=== PATIENT | male | born 1960 | race Caucasian/White ===

== ENCOUNTER 2025-02-15 12:28 | Inpatient (IN) | payer BC, OTHER ==
[~2025-02-15] VITALS: Ht 175.3 cm; Wt 67.5 kg
[~2025-02-15 12:28] MED LIST: AMIT25TA10 PO; ASPI-611 PO; GLUC-131 PO; LISI10TA27 PO; LOP25T PO; MELA3TAB39 PO; NITR0.4T48 SL; VALA100031 PO
[2025-02-15 12:49] VITALS: PULSE 93; RESP 24; O2SAT 95
[2025-02-15 13:10] LABS: BASOPHILS # (AUTO) 0.1 X10'3 (0-0.2); BASOPHILS % (AUTO) 1.2 % (0-1); EOSINOPHILS # (AUTO) 0.1 X10'3 (0-0.9); EOSINOPHILS % (AUTO) 0.7 % (0-6); HEMATOCRIT 27.4 % (42.0-52.0); HEMOGLOBIN 9.5 g/dl (14.0-17.9); LYMPHOCYTES # (AUTO) 1.3 X10'3 (1.1-4.8); LYMPHOCYTES % (AUTO) 12.3 % (21-51); MEAN CORPUSCULAR HEMOGLOBIN 37.3 PG (27.0-31.0); MEAN CORPUSCULAR HGB CONC 34.8 g/dL (33.0-36.5); MEAN CORPUSCULAR VOLUME 107.1 FL (78-98); MEAN PLATELET VOLUME 11.4 FL (7.4-10.4); MONOCYTES # (AUTO) 0.8 X10'3 (0-0.9); MONOCYTES % (AUTO) 7.4 % (2-12); NEUTROPHILS % (AUTO) 78.4 % (42-75); PLATELET COUNT 86 X10'3 (140-440); RED BLOOD COUNT 2.56 X10'6 (4.70-6.10); RED CELL DISTRIBUTION WIDTH 16.1 % (11.5-14.5); WHITE BLOOD COUNT 10.2 X10'3 (4.5-11.0)
[2025-02-15 13:12] LABS: PROTHROMBIN TIME 10.7 SECONDS (9.0-12.0)
[2025-02-15 13:19] LABS: ALBUMIN 1.3 G/DL (3.4-5.0); ANION GAP 15 (8-16); BLOOD UREA NITROGEN 115 MG/DL (7-18); BUN/CREATININE RATIO 18.7 (10.0-20.0); CALCIUM 8.3 MG/DL (8.5-10.1); CHLORIDE 97 MMOL/L (99-107); CREATININE 6.15 MG/DL (0.60-1.10); GLUCOSE 102 MG/DL (70-104); POTASSIUM 3.6 MMOL/L (3.5-5.1); SODIUM 134 MMOL/L (135-145); TOTAL CARBON DIOXIDE 22.4 MMOL/L (24-32); eCRCL 12 ML/MIN; eGFR 9 ML/MIN
[2025-02-15] MEDS ORDERED: heparin 10,000 units/1 ML INJ IV PRN (13:20)
[2025-02-15] MEDS: heparin 25,000 UNIT/250ml bag 250 ML IV PRN (13:26)
[2025-02-15] MEDS: HEPARIN DRIP INITAL BOLUS --- DO NOT GIVE/ORDER MC ONE (13:27)
[2025-02-15] MEDS: MESSAGE TO NURSING IV ONE (13:27)
[2025-02-15 13:36] LABS: NUCLEATED RED BLOOD CELLS 1 /100WBC (0-0); TOTAL CELLS COUNTED 100
[2025-02-15 13:37] LABS: PLATELET ESTIMATE NORMAL
[2025-02-15] MEDS ORDERED: FAMO20TA8 PO (13:48)
[2025-02-15] MEDS ORDERED: FURO20TA4 PO (13:48)
[2025-02-15] MEDS ORDERED: ZOLP10TA PO (13:48)
[2025-02-15] MEDS ORDERED: CARV25TA3 PO (13:48)
[2025-02-15] MEDS ORDERED: PRED20TA PO (13:48)
[2025-02-15] MEDS ORDERED: FLO0.4C (13:48)
[2025-02-15] MEDS ORDERED: PRED10TA PO (13:48)
[2025-02-15] MEDS ORDERED: CHOL400T PO (13:48)
[2025-02-15] MEDS ORDERED: DAPA5TAB PO (13:48)
[2025-02-15] MEDS ORDERED: ISOS20TA8 PO (13:48)
[2025-02-15] MEDS ORDERED: ATOV750O32 PO (13:48)
[2025-02-15] MEDS ORDERED: HYDR50TA46 PO (13:48)
[2025-02-15] MEDS ORDERED: IBRU280T PO (13:48)
[2025-02-15] MEDS ORDERED: ONDA-104 PO (13:48)
[2025-02-15] MEDS: CEFEPIME 2gm in D5W 50mL 50 ML IV ONE (15:17)
[2025-02-15] MEDS ORDERED: acetaminophen 325mg tablet PO PRN ×2 (15:35)
[2025-02-15] MEDS: vancomycin/NS 1 GM ADD-VANTAGE 250 ML X 1 DOSE IV ONE (15:49)
[2025-02-15] MEDS: morphine 2 MG/ML inj. syringe IV PRN (16:11)
[2025-02-15] MEDS ORDERED: vancomycin/NS 1 GM ADD-VANTAGE 250 ML IV PRN (16:15)
[2025-02-15] MEDS: metroNIDAZOLE-Flagyl 500mg/NS 100 ML IV SCH (18:18)
[2025-02-15 19:42] VITALS: PULSE 95; RESP 18; O2SAT 95
[2025-02-15 19:55] LABS: ALANINE AMINOTRANSFERASE 24 U/L (12-78); ALBUMIN 1.2 G/DL (3.4-5.0); ALBUMIN/GLOBULIN RATIO 0.3 (1.1-1.5); ALKALINE PHOSPHATASE 156 IU/L (46-116); ANION GAP 14 (8-16); ASPARTATE AMINO TRANSFERASE 23 U/L (10-37); BILIRUBIN,TOTAL 1.4 MG/DL (0.1-1.0); BLOOD UREA NITROGEN 118 MG/DL (7-18); BUN/CREATININE RATIO 18.9 (10.0-20.0); CHLORIDE 99 MMOL/L (99-107); CREATININE 6.23 MG/DL (0.60-1.10); GLUCOSE 89 MG/DL (70-104); MAGNESIUM 1.8 MG/DL (1.5-2.4); PHOSPHORUS 5.4 MG/DL (2.3-4.5); POTASSIUM 3.5 MMOL/L (3.5-5.1); SODIUM 134 MMOL/L (135-145); TOTAL PROTEIN 5.2 G/DL (6.4-8.2); eCRCL 12 ML/MIN; eGFR 9 ML/MIN
[2025-02-15 22:53] LABS: ABG BASE EXCESS -3.6 mmol/L (-2.0-3.0); ABG OXYGEN SATURATION 95.7 % (94.0-98.0); ABG PCO2 (T) 26.7 mmHg (35.0-48.0); ABG PH (T) 7.473 (7.350-7.450); ABG PO2 (T) 86.5 mmHg (83.0-108.0); ALLEN'S TEST Modified; FCOHb 0.1 % (0.5-1.5); FHHb 4.3 % (0.0-5.0); FLOW 30 L/min; FMetHb 0.3 % (0.0-1.5); FO2Hb 95.3 % (94.0-98.0); MODE HIGH FLOW; PATIENT TEMPERATURE 37.4
[2025-02-15] MEDS: prednisone 10mg tablet PO SCH (22:53)
[2025-02-15] MEDS: carVEDilol 12.5mg tablet PO SCH (22:53)
[2025-02-15] MEDS: hydrALAZINE 25 MG tablet PO SCH (22:53)
[2025-02-15] MEDS: furosemide 20MG tablet PO SCH (22:53)
[2025-02-15] MEDS: cefepime 1GM in D5W 50mL 50 ML IV SCH (22:54)
[2025-02-15] MEDS: acyclovir 200 MG capsule PO SCH (22:59)
[2025-02-15 23:41] VITALS: PULSE 94; RESP 21; O2SAT 93
[2025-02-16] VITALS (7 sets, daily range): BP systolic 96–123; BP diastolic 71–78; PULSE 68–85; RESP 17–23; TEMP 97.4–97.8; O2SAT 96–98
[2025-02-16] MEDS: VANCOMYCIN LEVEL IV SCH (02:16)
[2025-02-16 02:50] LABS: HEMATOCRIT 23.5 % (42.0-52.0); PLATELET COUNT 72 X10'3 (140-440)
[2025-02-16 02:51] LABS: MEAN CORPUSCULAR HEMOGLOBIN 36.6 PG (27.0-31.0); MEAN CORPUSCULAR HGB CONC 34.3 g/dL (33.0-36.5); MEAN CORPUSCULAR VOLUME 106.7 FL (78-98); MEAN PLATELET VOLUME 10.9 FL (7.4-10.4); RED CELL DISTRIBUTION WIDTH 15.9 % (11.5-14.5); WHITE BLOOD COUNT 11.2 X10'3 (4.5-11.0)
[2025-02-16 03:12] LABS: ALANINE AMINOTRANSFERASE 28 U/L (12-78); ALBUMIN 1.2 G/DL (3.4-5.0); ALBUMIN/GLOBULIN RATIO 0.3 (1.1-1.5); ALKALINE PHOSPHATASE 156 IU/L (46-116); ANION GAP 12 (8-16); ASPARTATE AMINO TRANSFERASE 28 U/L (10-37); BILIRUBIN,TOTAL 1.4 MG/DL (0.1-1.0); BLOOD UREA NITROGEN 116 MG/DL (7-18); BUN/CREATININE RATIO 18.8 (10.0-20.0); CALCIUM 7.9 MG/DL (8.5-10.1); CHLORIDE 99 MMOL/L (99-107); CREATININE 6.17 MG/DL (0.60-1.10); GLUCOSE 86 MG/DL (70-104); MAGNESIUM 1.9 MG/DL (1.5-2.4); PHOSPHORUS 5.3 MG/DL (2.3-4.5); POTASSIUM 3.5 MMOL/L (3.5-5.1); SODIUM 134 MMOL/L (135-145); TOTAL CARBON DIOXIDE 22.6 MMOL/L (24-32); VANCOMYCIN,RANDOM 16.4 ug/mL (20.0-30.0); eCRCL 12 ML/MIN; eGFR 9 ML/MIN
[2025-02-16 03:55] LABS: NUCLEATED RED BLOOD CELLS 2 /100WBC (0-0); TOTAL CELLS COUNTED 100
[2025-02-16 06:08] LABS: BILIRUBIN,URINE NEGATIVE (Neg); CLARITY,URINE CLEAR (Clear); GLUCOSE, URINE NEGATIVE (Neg); KETONES,URINE NEGATIVE (Neg); LEUKOCYTE ESTERASE ,URINE NEGATIVE (Neg); NITRITES, URINE NEGATIVE (Neg); OCCULT BLOOD,URINE NEGATIVE (Neg); PROTEIN,URINE 100 mg/dl (Neg); UROBILINOGEN,URINE 0.2 E.U/dL (0.2-1.0)
[2025-02-16 06:14] LABS: UA COLLECTION TYPE CLN CATCH MIDSTREAM
[2025-02-16 06:15] LABS: COLOR,URINE YELLOW (Yellow)
[2025-02-16 06:16] LABS: BACTERIA,URINE FEW /HPF (Neg); MUCUS STRANDS NONE SEEN /LPF (Neg); RBC,URINE 0-2 /HPF (0-2); SQUAMOUS EPITHELIAL CELL,UR FEW /LPF (FEW); WBC,URINE 0-4 /HPF (0-4)
[2025-02-16 06:17] LABS: COARSE GRANULAR CAST 0-3 /LPF (NEGATIVE)
[2025-02-16] MEDS: pantoprazole 40 MG vial IV SCH (08:28)
[2025-02-16] MEDS: DAPAGLIFLOZIN 10MG TABLET PO SCH (08:30)
[2025-02-16] MEDS ORDERED: HEPARIN DRIP-CARDIAC**PHARMACIST-TO-DOSE IV SCH (19:20)
[2025-02-16] MEDS ORDERED: heparin 10,000 units/1 ML INJ IV PRN (19:30)
[2025-02-16] MEDS: HEPARIN DRIP INITAL BOLUS --- DO NOT GIVE/ORDER MC ONE (19:30)
[2025-02-16] MEDS: ATOVAQUONE 750 MG/5 ML ORAL.SUSP PO SCH (19:47)
[2025-02-16] MEDS: MESSAGE TO NURSING IV ONE (20:05)
[2025-02-16] MEDS: heparin 25,000 UNIT/250ml bag 250 ML IV PRN (21:47)
[2025-02-17] VITALS (11 sets, daily range): BP systolic 103–132; BP diastolic 72–95; PULSE 62–78; RESP 13–20; TEMP 96.5–98.6; O2SAT 95–100
[2025-02-17] MEDS: MESSAGE TO NURSING IV ONE (04:40)
[2025-02-17] MEDS ORDERED: heparin 1,000unit/ml 10ml vial 10 ML IV ONE (05:45)
[2025-02-17 06:50] LABS: HEMOGLOBIN 8.2 g/dl (14.0-17.9); RED BLOOD COUNT 2.25 X10'6 (4.70-6.10); WHITE BLOOD COUNT 8.7 X10'3 (4.5-11.0)
[2025-02-17 06:51] LABS: HEMATOCRIT 23.8 % (42.0-52.0); MEAN CORPUSCULAR HEMOGLOBIN 36.5 PG (27.0-31.0); MEAN CORPUSCULAR HGB CONC 34.5 g/dL (33.0-36.5); MEAN PLATELET VOLUME 10.5 FL (7.4-10.4); PLATELET COUNT 60 X10'3 (140-440); RED CELL DISTRIBUTION WIDTH 16.3 % (11.5-14.5)
[2025-02-17 07:30] LABS: ALANINE AMINOTRANSFERASE 19 U/L (12-78); ALBUMIN 1.2 G/DL (3.4-5.0); ALBUMIN/GLOBULIN RATIO 0.3 (1.1-1.5); ALKALINE PHOSPHATASE 151 IU/L (46-116); ANION GAP 18 (8-16); ASPARTATE AMINO TRANSFERASE 20 U/L (10-37); BILIRUBIN,TOTAL 1.4 MG/DL (0.1-1.0); BLOOD UREA NITROGEN 139 MG/DL (7-18); BUN/CREATININE RATIO 21.7 (10.0-20.0); CALCIUM 8.1 MG/DL (8.5-10.1); CHLORIDE 98 MMOL/L (99-107); CREATININE 6.41 MG/DL (0.60-1.10); GLUCOSE 115 MG/DL (70-104); MAGNESIUM 2.2 MG/DL (1.5-2.4); PHOSPHORUS 8.8 MG/DL (2.3-4.5); POTASSIUM 3.6 MMOL/L (3.5-5.1); SODIUM 133 MMOL/L (135-145); TOTAL CARBON DIOXIDE 16.8 MMOL/L (24-32); TOTAL PROTEIN 5.1 G/DL (6.4-8.2); VANCOMYCIN,RANDOM 11.3 ug/mL (20.0-30.0); eCRCL 11 ML/MIN; eGFR 9 ML/MIN
[2025-02-17] MEDS ORDERED: ATOVAQUONE 750 MG/5 ML ORAL.SUSP PO SCH ×4 (08:36→08:42)
[2025-02-17] MEDS: ATOVAQUONE 750 MG/5 ML ORAL.SUSP PO SCH ×2 (08:43→23:27)
[2025-02-17 09:06] LABS: NUCLEATED RED BLOOD CELLS 3 /100WBC (0-0); PLATELET ESTIMATE DECREASED; TOTAL CELLS COUNTED 100
[2025-02-17 09:07] LABS: ANISOCYTOSIS 1+; LARGE PLATELETS FEW
[2025-02-17 09:08] LABS: BURR CELLS 1+
[2025-02-17] MEDS: vancomycin/NS 1 GM ADD-VANTAGE 250 ML IV ONE (10:12)
[2025-02-17] MEDS ORDERED: POSA100T2 PO (10:47)
[2025-02-17 11:46] LABS: HBSAG SCREEN Negative (Negative)
[2025-02-17 12:21] LABS: LACTATE DEHYDROGENASE 191 U/L (85-227)
[2025-02-17] MEDS: azithromycin/NS 500mg/250ml 250 ML IV SCH (12:32)
[2025-02-17] MEDS ORDERED: FLO0.4C PO (14:30)
[2025-02-17] MEDS ORDERED: midazolam 1 mg/ML 2ml injection ONE (17:45)
[2025-02-17] MEDS ORDERED: heparin 1,000unit/ml 10ml vial 10 ML ONE (17:45)
[2025-02-17] MEDS ORDERED: fentaNYL/PF 50MCG/1 ML 2ML syringe ONE (17:46)
[2025-02-17] MEDS: EPOETIN ALFA-EPBX 20,000 UNIT/ML 1 ML MDV IV ONE (20:16)
[2025-02-17] MEDS: mannitol 12.5gm/50mL VIAL IV ONE (20:20)
[2025-02-17] MEDS: heparin 1,000 units/ml 10ml inj HE ONE ×2 (20:22→20:23)
[2025-02-17] MEDS: heparin 1,000 units/ml 10ml inj IV ONE (20:23)
[2025-02-17] MEDS ORDERED: zolpidem 5mg tablet PO PRN (21:00)
[2025-02-18] VITALS (15 sets, daily range): BP systolic 106–135; BP diastolic 72–93; PULSE 61–91; RESP 12–18; TEMP 96.9–98.6; O2SAT 93–100
[2025-02-18 06:30] LABS: HEMOGLOBIN 8.2 g/dl (14.0-17.9); MEAN CORPUSCULAR HGB CONC 33.9 g/dL (33.0-36.5)
[2025-02-18 06:33] LABS: HEMATOCRIT 24.2 % (42.0-52.0); MEAN CORPUSCULAR HEMOGLOBIN 36.4 PG (27.0-31.0); MEAN CORPUSCULAR VOLUME 107.6 FL (78-98); MEAN PLATELET VOLUME 9.9 FL (7.4-10.4); PLATELET COUNT 52 X10'3 (140-440); RED BLOOD COUNT 2.25 X10'6 (4.70-6.10); RED CELL DISTRIBUTION WIDTH 16.2 % (11.5-14.5); WHITE BLOOD COUNT 8.9 X10'3 (4.5-11.0)
[2025-02-18 06:56] LABS: ALANINE AMINOTRANSFERASE 20 U/L (12-78); ALBUMIN 1.3 G/DL (3.4-5.0); ALBUMIN/GLOBULIN RATIO 0.4 (1.1-1.5); ALKALINE PHOSPHATASE 153 IU/L (46-116); ANION GAP 14 (8-16); ASPARTATE AMINO TRANSFERASE 19 U/L (10-37); BILIRUBIN,TOTAL 1.2 MG/DL (0.1-1.0); BLOOD UREA NITROGEN 95 MG/DL (7-18); BUN/CREATININE RATIO 20.4 (10.0-20.0); CALCIUM 7.9 MG/DL (8.5-10.1); CHLORIDE 103 MMOL/L (99-107); CREATININE 4.65 MG/DL (0.60-1.10); GLUCOSE 91 MG/DL (70-104); MAGNESIUM 2.2 MG/DL (1.5-2.4); PHOSPHORUS 6.4 MG/DL (2.3-4.5); POTASSIUM 3.5 MMOL/L (3.5-5.1); SODIUM 139 MMOL/L (135-145); TOTAL PROTEIN 4.9 G/DL (6.4-8.2); VANCOMYCIN,RANDOM 17.3 ug/mL (20.0-30.0); eCRCL 16 ML/MIN; eGFR 13 ML/MIN
[2025-02-18] MEDS: cefTAZidime 1 GM/NS 100ML IVPB 100 ML IV SCH (07:35)
[2025-02-18] MEDS: pantoprazole 40mg Tablet.DR PO SCH (07:35)
[2025-02-18] MEDS: prednisone 10mg tablet PO SCH (07:36)
[2025-02-18 07:54] LABS: ANISOCYTOSIS 1+; PLATELET ESTIMATE DECREASED; TOTAL CELLS COUNTED 100
[2025-02-18 07:55] LABS: POLYCHROMASIA 1+
[2025-02-18] MEDS ORDERED: gelatin sponge, absorbable (Gelfoam 12-7MM) sponge TP ONE (08:51)
[2025-02-18] MEDS ORDERED: LIDOcaine 1%/PF 5ML 10 MG/ML VIAL ONE (09:36)
[2025-02-18] MEDS: ondansetron/PF 4mg/2ml inj IV PRN (15:09)
[2025-02-18] MEDS: EPOETIN ALFA-EPBX 20,000 UNIT/ML 1 ML MDV IV ONE (15:48)
[2025-02-18] MEDS: heparin 1,000 units/ml 10ml inj HE ONE ×2 (21:00)
[2025-02-18] MEDS: heparin 1,000 units/ml 10ml inj IV ONE (21:00)
[2025-02-18] MEDS: heparin 1,000unit/ml 10ml vial 10 ML IV ONE (21:00)
[2025-02-19] VITALS (16 sets, daily range): BP systolic 110–145; BP diastolic 53–88; PULSE 65–93; RESP 12–24; TEMP 97–98.4; O2SAT 93–100
[2025-02-19 06:12] LABS: BASOPHILS % (AUTO) 0.2 % (0-1); EOSINOPHILS % (AUTO) 0.3 % (0-6); HEMATOCRIT 23.1 % (42.0-52.0); HEMOGLOBIN 7.8 g/dl (14.0-17.9); LYMPHOCYTES # (AUTO) 0.4 X10'3 (1.1-4.8); LYMPHOCYTES % (AUTO) 4.2 % (21-51); MEAN CORPUSCULAR HEMOGLOBIN 36.1 PG (27.0-31.0); MEAN CORPUSCULAR HGB CONC 33.8 g/dL (33.0-36.5); MEAN CORPUSCULAR VOLUME 106.9 FL (78-98); MEAN PLATELET VOLUME 9.7 FL (7.4-10.4); MONOCYTES # (AUTO) 0.7 X10'3 (0-0.9); MONOCYTES % (AUTO) 7.5 % (2-12); NEUTROPHILS # (AUTO) 8.6 X10'3 (1.8-7.7); NEUTROPHILS % (AUTO) 87.8 % (42-75); PLATELET COUNT 100 X10'3 (140-440); RED BLOOD COUNT 2.16 X10'6 (4.70-6.10); RED CELL DISTRIBUTION WIDTH 16.4 % (11.5-14.5); WHITE BLOOD COUNT 9.8 X10'3 (4.5-11.0)
[2025-02-19 06:27] LABS: ALANINE AMINOTRANSFERASE 23 U/L (12-78); ALBUMIN 1.5 G/DL (3.4-5.0); ALBUMIN/GLOBULIN RATIO 0.4 (1.1-1.5); ALKALINE PHOSPHATASE 154 IU/L (46-116); ANION GAP 9 (8-16); ASPARTATE AMINO TRANSFERASE 15 U/L (10-37); BILIRUBIN,TOTAL 1.1 MG/DL (0.1-1.0); BLOOD UREA NITROGEN 73 MG/DL (7-18); BUN/CREATININE RATIO 18.4 (10.0-20.0); CALCIUM 7.8 MG/DL (8.5-10.1); CHLORIDE 105 MMOL/L (99-107); CREATININE 3.97 MG/DL (0.60-1.10); GLUCOSE 95 MG/DL (70-104); MAGNESIUM 2.1 MG/DL (1.5-2.4); PHOSPHORUS 4.3 MG/DL (2.3-4.5); POTASSIUM 3.4 MMOL/L (3.5-5.1); SODIUM 140 MMOL/L (135-145); VANCOMYCIN,RANDOM 14.9 ug/mL (20.0-30.0); eCRCL 18 ML/MIN; eGFR 15 ML/MIN
[2025-02-19] MEDS: EPOETIN ALFA-EPBX 20,000 UNIT/ML 1 ML MDV IV ONE (07:45)
[2025-02-19 07:49] LABS: NUCLEATED RED BLOOD CELLS 2 /100WBC (0-0); PLATELET ESTIMATE DECREASED; TOTAL CELLS COUNTED 100
[2025-02-19 07:50] LABS: ANISOCYTOSIS 1+; POLYCHROMASIA 1+; SCHISTOCYTES FEW; TARGET CELLS 1+
[2025-02-19] MEDS ORDERED: albumin (human) 25% 100ml IV 100 ML IV PRN (08:00)
[2025-02-19] MEDS: heparin 1,000 units/ml 10ml inj HE ONE ×2 (10:20)
[2025-02-19] MEDS: vancomycin/NS 1 GM ADD-VANTAGE 250 ML X 1 DOSE IV ONE (12:31)
[2025-02-19] MEDS: heparin, porcine 5000 units/ml vial SQ SCH (19:59)
[2025-02-19 21:25] LABS: PROTHROMBIN TIME 10.4 SECONDS (9.0-12.0)
[2025-02-19 21:28] LABS: APTT 29 SECONDS (22-32)
[2025-02-20] VITALS (9 sets, daily range): BP systolic 111–146; BP diastolic 68–92; PULSE 72–87; RESP 13–19; TEMP 97.4–97.8; O2SAT 93–97
[2025-02-20 06:48] LABS: MONOCYTES # (AUTO) 0.8 X10'3 (0-0.9)
[2025-02-20 06:50] LABS: BASOPHILS % (AUTO) 0 % (0-1); EOSINOPHILS # (AUTO) 0.2 X10'3 (0-0.9); EOSINOPHILS % (AUTO) 1.7 % (0-6); HEMATOCRIT 23.4 % (42.0-52.0); HEMOGLOBIN 7.7 g/dl (14.0-17.9); LYMPHOCYTES # (AUTO) 0.6 X10'3 (1.1-4.8); LYMPHOCYTES % (AUTO) 4.5 % (21-51); MEAN CORPUSCULAR HEMOGLOBIN 35.6 PG (27.0-31.0); MEAN CORPUSCULAR HGB CONC 32.9 g/dL (33.0-36.5); MEAN CORPUSCULAR VOLUME 108.3 FL (78-98); MEAN PLATELET VOLUME 8.6 FL (7.4-10.4); NEUTROPHILS # (AUTO) 11.1 X10'3 (1.8-7.7); NEUTROPHILS % (AUTO) 87.8 % (42-75); PLATELET COUNT 74 X10'3 (140-440); RED BLOOD COUNT 2.16 X10'6 (4.70-6.10); RED CELL DISTRIBUTION WIDTH 16.1 % (11.5-14.5); WHITE BLOOD COUNT 12.6 X10'3 (4.5-11.0)
[2025-02-20 07:05] LABS: ALANINE AMINOTRANSFERASE 19 U/L (12-78); ALBUMIN 1.4 G/DL (3.4-5.0); ALBUMIN/GLOBULIN RATIO 0.4 (1.1-1.5); ALKALINE PHOSPHATASE 158 IU/L (46-116); ANION GAP 9 (8-16); ASPARTATE AMINO TRANSFERASE 19 U/L (10-37); BILIRUBIN,TOTAL 1.1 MG/DL (0.1-1.0); BLOOD UREA NITROGEN 43 MG/DL (7-18); BUN/CREATININE RATIO 13.8 (10.0-20.0); CALCIUM 7.7 MG/DL (8.5-10.1); CHLORIDE 106 MMOL/L (99-107); CREATININE 3.12 MG/DL (0.60-1.10); GLUCOSE 101 MG/DL (70-104); PHOSPHORUS 2.8 MG/DL (2.3-4.5); POTASSIUM 3.5 MMOL/L (3.5-5.1); SODIUM 140 MMOL/L (135-145); TOTAL CARBON DIOXIDE 25.5 MMOL/L (24-32); TOTAL PROTEIN 4.8 G/DL (6.4-8.2); VANCOMYCIN,RANDOM 20.6 ug/mL (20.0-30.0); eCRCL 23 ML/MIN; eGFR 20 ML/MIN
[2025-02-20 07:40] LABS: ANISOCYTOSIS 1+; NUCLEATED RED BLOOD CELLS 1 /100WBC (0-0); PLATELET ESTIMATE DECREASED; TOTAL CELLS COUNTED 100
[2025-02-20 07:41] LABS: POLYCHROMASIA 1+; SCHISTOCYTES FEW
[2025-02-20 07:42] LABS: TARGET CELLS 1+; TEAR DROP CELLS FEW
[2025-02-20] MEDS: NUT.TX.IMP.RENAL FXN,LAC-REDUC (Nepro) 237 ML VANILLA PO SCH (17:30)
[2025-02-20] MEDS: zolpidem 5mg tablet PO ONE (22:08)
[2025-02-21] VITALS (10 sets, daily range): BP systolic 67–138; BP diastolic 78–95; PULSE 75–136; RESP 13–18; TEMP 97.1–98; O2SAT 93–99
[2025-02-21 07:19] LABS: LYMPHOCYTES # (AUTO) 0.6 X10'3 (1.1-4.8); NEUTROPHILS # (AUTO) 10.9 X10'3 (1.8-7.7)
[2025-02-21 07:20] LABS: BASOPHILS % (AUTO) 0.1 % (0-1); EOSINOPHILS # (AUTO) 0.1 X10'3 (0-0.9); EOSINOPHILS % (AUTO) 0.9 % (0-6); HEMATOCRIT 22.6 % (42.0-52.0); HEMOGLOBIN 7.3 g/dl (14.0-17.9); LYMPHOCYTES % (AUTO) 5.1 % (21-51); MEAN CORPUSCULAR HEMOGLOBIN 35.6 PG (27.0-31.0); MEAN CORPUSCULAR HGB CONC 32.5 g/dL (33.0-36.5); MEAN CORPUSCULAR VOLUME 109.7 FL (78-98); MEAN PLATELET VOLUME 10.5 FL (7.4-10.4); MONOCYTES # (AUTO) 0.7 X10'3 (0-0.9); MONOCYTES % (AUTO) 5.9 % (2-12); RED BLOOD COUNT 2.06 X10'6 (4.70-6.10); RED CELL DISTRIBUTION WIDTH 16.6 % (11.5-14.5); WHITE BLOOD COUNT 12.4 X10'3 (4.5-11.0)
[2025-02-21 07:26] LABS: PROTHROMBIN TIME 10.6 SECONDS (9.0-12.0)
[2025-02-21 07:32] LABS: PLATELET COUNT 80 X10'3 (140-440)
[2025-02-21 07:51] LABS: ALANINE AMINOTRANSFERASE 18 U/L (12-78); ALBUMIN 1.4 G/DL (3.4-5.0); ALBUMIN/GLOBULIN RATIO 0.4 (1.1-1.5); ALKALINE PHOSPHATASE 156 IU/L (46-116); ANION GAP 9 (8-16); ASPARTATE AMINO TRANSFERASE 17 U/L (10-37); BLOOD UREA NITROGEN 54 MG/DL (7-18); BUN/CREATININE RATIO 14.6 (10.0-20.0); CALCIUM 7.5 MG/DL (8.5-10.1); CHLORIDE 105 MMOL/L (99-107); GLUCOSE 96 MG/DL (70-104); MAGNESIUM 1.9 MG/DL (1.5-2.4); PHOSPHORUS 3.2 MG/DL (2.3-4.5); POTASSIUM 3.5 MMOL/L (3.5-5.1); SODIUM 139 MMOL/L (135-145); TOTAL CARBON DIOXIDE 25.1 MMOL/L (24-32); TOTAL PROTEIN 4.6 G/DL (6.4-8.2); VANCOMYCIN,RANDOM 17.6 ug/mL (20.0-30.0); eCRCL 20 ML/MIN; eGFR 17 ML/MIN
[2025-02-21] MEDS ORDERED: normal saline 1000ml 100 ML IV PRN (08:00)
[2025-02-21] MEDS: EPOETIN ALFA-EPBX 20,000 UNIT/ML 1 ML MDV IV ONE (09:15)
[2025-02-21] MEDS: heparin 1,000 units/ml 10ml inj HE ONE ×2 (09:16)
== END 2025-02-21 12:33 | disposition left against medical advice (07) | DRG 871 ==
LOC: ER 12:28 → ED HOLD 15:41 → EDBEDREQSVC 02-16 12:52 → PCU 3S 02-16 13:23
PROVIDERS: ADMIT Internal Medicine Critical Care Medicine; ATTEND Internal Medicine Critical Care Medicine
PROC: 5A0935A Assistance with Respiratory Ventilation, Less than 24 Consecutive Hours, High Flow/Velocity Cannula (ICD-10-PCS; principal; 2025-02-15)
PROC: 5A1D70Z Performance of Urinary Filtration, Intermittent, Less than 6 Hours Per Day (ICD-10-PCS; 2025-02-17)
PROC: 0JH63XZ Insertion of Tunneled Vascular Access Device into Chest Subcutaneous Tissue and Fascia, Percutaneous Approach (ICD-10-PCS; 2025-02-17)
PROC: 02H633Z Insertion of Infusion Device into Right Atrium, Percutaneous Approach (ICD-10-PCS; 2025-02-17)
PROC: B548ZZA Ultrasonography of Superior Vena Cava, Guidance (ICD-10-PCS; 2025-02-17)
PROC: 30233R1 Transfusion of Nonautologous Platelets into Peripheral Vein, Percutaneous Approach (ICD-10-PCS; 2025-02-18)
PROC: 5A1D70Z Performance of Urinary Filtration, Intermittent, Less than 6 Hours Per Day (ICD-10-PCS; 2025-02-18)
PROC: 5A1D70Z Performance of Urinary Filtration, Intermittent, Less than 6 Hours Per Day (ICD-10-PCS; 2025-02-19)
PROC: 5A1D70Z Performance of Urinary Filtration, Intermittent, Less than 6 Hours Per Day (ICD-10-PCS; 2025-02-21)
DX: A41.9 Sepsis, unspecified organism (principal); I21.A1 Myocardial infarction type 2; J96.01 Acute respiratory failure with hypoxia; J12.1 Respiratory syncytial virus pneumonia; N17.0 Acute kidney failure with tubular necrosis; I42.9 Cardiomyopathy, unspecified; D80.1 Nonfamilial hypogammaglobulinemia; D89.813 Graft-versus-host disease, unspecified; I50.22 Chronic systolic (congestive) heart failure; E87.1 Hypo-osmolality and hyponatremia; T86.5 Complications of stem cell transplant; N18.4 Chronic kidney disease, stage 4 (severe); T82.838A Hemorrhage due to vascular prosthetic devices, implants and grafts, initial encounter; Y83.8 Other surgical procedures as the cause of abnormal reaction of the patient, or of later complication, without mention of misadventure at the time of the procedure; Y92.238 Other place in hospital as the place of occurrence of the external cause; F43.10 Post-traumatic stress disorder, unspecified; I12.9 Hypertensive chronic kidney disease with stage 1 through stage 4 chronic kidney disease, or unspecified chronic kidney disease; R04.0 Epistaxis; E83.39 Other disorders of phosphorus metabolism; D53.1 Other megaloblastic anemias, not elsewhere classified; D69.6 Thrombocytopenia, unspecified; Y83.0 Surgical operation with transplant of whole organ as the cause of abnormal reaction of the patient, or of later complication, without mention of misadventure at the time of the procedure; Z79.899 Other long term (current) drug therapy; Z85.72 Personal history of non-Hodgkin lymphomas; Z92.21 Personal history of antineoplastic chemotherapy; Z88.2 Allergy status to sulfonamides; Y93.89 Activity, other specified; Y92.89 Other specified places as the place of occurrence of the external cause; Z53.29 Procedure and treatment not carried out because of patient's decision for other reasons
CPT/HCPCS: 36415; 36430; 36558; 36600; 71045; 71250; 76937; 77001; 80048; 80053; 80069; 80202; 81001; 82803; 83605; 83615; 83735; 84100; 84145; 84484; 85007; 85018; 85025; 85610; 85651; 85730; 86644; 86704; 86706; 86885; 86900; 86901; 86945; 87040; 87081; 87340; 87449; 93005; 93306; 94760; 96365; 96366; 96367; 96368; 96375; 99152; 99153; 99291; A4615; A4620; A6253; A6258; A6446; A6449; A9270; C1750; E1594; G0257; G0378; J0456; J0692; J0713; J1644; J2150; J2270; J2405; J2470; J3370; J3490; J7030; J7040; J7120; J7512; P9035; Q4081